=== PATIENT | female | born 1975 | race Caucasian/White ===

== ENCOUNTER 2017-10-19 07:26 | Emergency (ER) | payer BC ==
[~2017-10-19] VITALS: Ht 165.1 cm; Wt 68.0 kg
[~2017-10-19 07:26] MED LIST: ALEVE220 M1 PO; BENADRYL25 MG PO; EPIPEN0.3 MG/0.3 IM; NORCO 5-325 TA1 EACH PO; PREDNISONE 20 M20 M1 PO; PROAIR HFA8.5 GM IH; VISTARIL 25 MG25 M1 PO
[2017-10-19] MEDS ORDERED: CYCLOBENZAPRINE5 MG PO (07:50)
[2017-10-19] MEDS ORDERED: TORADOL 10 MG T10 MG PO (07:50)
[2017-10-19 08:15] VITALS: BP 138/87
== END 2017-10-19 08:26 | disposition home or self-care (01) ==
LOC: M.ERS 07:26
DX: S46.812A Strain of other muscles, fascia and tendons at shoulder and upper arm level, left arm, initial encounter (principal); F17.210 Nicotine dependence, cigarettes, uncomplicated; Z86.2 Personal history of diseases of the blood and blood-forming organs and certain disorders involving the immune mechanism; Z88.5 Allergy status to narcotic agent; Z88.2 Allergy status to sulfonamides; X50.0XXA Overexertion from strenuous movement or load, initial encounter; Y93.89 Activity, other specified; Y92.89 Other specified places as the place of occurrence of the external cause; Y99.8 Other external cause status